=== PATIENT | male | born 1955 | race Caucasian/White ===

== ENCOUNTER 2022-01-10 07:54 | Day surgery (SDC) | payer MEDICARE, OTHER ==
[~2022-01-10] VITALS: Ht 188 cm; Wt 86.0 kg
[2022-01-10] VITALS (9 sets, daily range): BP systolic 115–145; BP diastolic 81–102; PULSE 55–76; TEMP 98.6
[2022-01-10 08:31] LABS: HEMATOCRIT 44.8 % (42.0-52.0); HEMOGLOBIN 15.3 g/dl (13.5-18.0); MEAN CELL VOLUME 90 fl (80.0-100.0); MEAN CORPUSCULAR HEMOGLOBIN 31 pg (27-31); MEAN CORPUSCULAR HGB CONC 34 g/dl (33.0-37.0); PLATELET COUNT 203 K/mm3 (130-400); RED BLOOD COUNT 4.97 M/mm3 (4.20-5.60); REDCELL DISTRIBUTION WIDTH-CV 13.4 % (11.5-14.5)
[2022-01-10] MEDS ORDERED: PRADAXA 150MG150 MG PO (08:40)
[2022-01-10] MEDS ORDERED: LASIX 40MG TABL40 MG PO (08:40)
[2022-01-10] MEDS ORDERED: PROVIGIL200 MG PO (08:41)
[2022-01-10] MEDS ORDERED: ZOLOFT 100MG100 MG PO (08:41)
[2022-01-10] MEDS ORDERED: BETAPACEAF120 PO (08:42)
[2022-01-10] MEDS ORDERED: LIPITOR 40MG TA40 MG PO (08:42)
[2022-01-10] MEDS ORDERED: KEPPRA1000 MG PO (08:43)
[2022-01-10] MEDS ORDERED: ALDACTONE 25MG25 M1 PO (08:43)
[2022-01-10] MEDS ORDERED: FIORICET 325 MG1 TA1 PO (08:44)
[2022-01-10] MEDS ORDERED: KEPPRA250 MG PO (08:44)
[2022-01-10] MEDS ORDERED: LAMICTAL150 MG PO (08:45)
[2022-01-10] MEDS ORDERED: DESYREL 100MG100 MG PO (08:45)
[2022-01-10] MEDS ORDERED: ARTIFICIAL TEAR15 M7 OP (08:46)
[2022-01-10] MEDS ORDERED: MELATONIN ER10 MG PO (08:46)
[2022-01-10 08:50] LABS: CALCIUM 9.3 mg/dL (8.4-10.2); CREATININE, serum 0.97 mg/dL (0.72-1.25); POTASSIUM 3.6 mmol/L (3.5-4.5)
--- NOTE | 2022-01-10 09:49 | NUR ---
SEE MERGE FOR VITAL SIGNS, ASSESSMENT, INTERVENTIONS AND MEDICATIONS GIVEN.
[2022-01-10] MEDS ORDERED: CEPHALEXIN500 M1 PO (11:58)
--- NOTE | 2022-01-10 13:24 | NUR ---
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 Pt did well during his recovery. stayed on bedrest x 2 hours. was able to eat lunch, Ice pack was applied to pacer site. dressing to site remained clean dry and intact, and there was no swelling to area. I reviewed dc/fu and rx instructions with pt who verbalized understanding. Pt was steady on his feet, is dressed and I escorted pt to exit via wheelchair.
== END 2022-01-10 14:00 | disposition home or self-care (01) ==
LOC: COL.CAR 07:54
PROVIDERS: Internal Medicine Cardiovascular Disease
DX: Z45.02 Encounter for adjustment and management of automatic implantable cardiac defibrillator (principal); I42.0 Dilated cardiomyopathy
CPT/HCPCS: C1882; J0690; J2250; J3010; J7030